=== PATIENT | male | born 1960 | race American Indian/Alaskan Native ===

== ENCOUNTER → 2025-02-21 | Outpatient (CLI) | payer MEDICAID, SELFPAY ==
--- NOTE | 2025-02-21 09:30 | ECHO_ITS ---
Transthoracic Echo Report Ht (in): 72 Wt (lb): 220 Exam Location: Echo Lab Status: Preadmit Electric Tape Slitter: Lia Anderson Indications: Procedure Performed: BP: 139 / 96 HR: MEASUREMENTS (Male / Female) Normal Values 2D ECHO LV Diastolic Diameter PLAX 7.1 cm 4.2 - 5.9 / 3.9 - 5.3 cm LV Systolic Diameter PLAX 5.9 cm IVS Diastolic Thickness 0.9 cm 0.6 - 1.0 / 0.6 - 0.9 cm LVPW Diastolic Thickness 1.6 cm 0.6 - 1.0 / 0.6 - 0.9 cm LV Relative Wall Thickness 0.4 LV Ejection Fraction MOD BP 33.0 % >= 55 % LV Ejection Fraction MOD 4C 34.4 % LV Ejection Fraction 4C AL 34.1 % LV Ejection Fraction MOD 2C 29.0 % LV Ejection Fraction 2C AL 29.0 % LA Volume Index 43.4 cm?/m? 16 - 28 cm?/m? M-MODE Aortic Root Diameter MM 4.0 cm LA Systolic Diameter MM 4.6 cm LA Ao Ratio MM 1.1 AV Cusp Separation MM 1.7 cm DOPPLER AV Peak Velocity 80.3 cm/s AV Peak Gradient 2.6 mmHg AV Mean Gradient 1.0 mmHg AV Velocity Time Integral 16.6 cm LVOT Peak Velocity 56.2 cm/s LVOT Peak Gradient 1.3 mmHg LVOT Velocity Time Integral 11.6 cm MV Area PHT 3.5 cm? MR Peak Velocity 430.5 cm/s MR Peak Gradient 74.1 mmHg Mitral E Point Velocity 82.5 cm/s Mitral A Point Velocity 27.2 cm/s Mitral E to A Ratio 3.0 LV E' Lateral Velocity 8.1 cm/s Mitral E to LV E' Lateral Ratio 10.2 LV E' Septal Velocity 3.3 cm/s Mitral E to LV E' Septal Ratio 25.3 TR Peak Velocity 341.0 cm/s TR Peak Gradient 46.5 mmHg PV Peak Velocity 77.4 cm/s PV Peak Gradient 2.4 mmHg FINDINGS Left Ventricle The left ventricular cavity size is moderately increased. Global left ventricular systolic function is severely decreased. The left ventricular ejection fraction is severely decreased, estimated at 25- 30%. Unable to evaluate diastolic function due valvular disease. Right Ventricle The right ventricle is normal in size and systolic function. The estimated right ventricular systolic pressure, 62 mmHg. RAP 15. Left Atrium The left atrium is normal by two-dimensional, color flow and Doppler imaging with no structural abnormalities, no thrombus formation present. Right Atrium The right atrium is normal by two-dimensional imaging, color flow and Doppler imaging with no structural abnormalities, no thrombus formation present. Atrial Septum The interatrial septum appears normal with no evidence of a shunt. Aorta The aorta is normal by two-dimensional, color flow and Doppler interrogation. Mitral Valve The mitral valve is normal by two-dimensional, color flow and Doppler interrogation. [id number] mitral regurgitation. Aortic Valve The aortic valve is trileaflet and normal by two-dimensional, color flow and Doppler interrogation. Trace aortic valve regurgitation. Tricuspid Valve The tricuspid valve is normal by two-dimensional, color flow and Doppler interrogation. There is mild to moderate tricuspid valve regurgitation. Pulmonic Valve The pulmonic valve is not well visualized. There is no significant pulmonic valve regurgitation. Vessels Less than 50% respiratory change in dimension of the inferior vena cava abnormal. Pericardium The pericardium is normal by two-dimensional imaging. There is no significant pericardial effusion. CONCLUSIONS Indication: Cardiomyopathy Dilated cardiomyopathy severe global hypokinesis LVEF estimated at 25-30%. The RV is normal in size and systolic function. Modearte pumonary hypertension The estimated RVSP, 62 mmHg. RAP 15. Moderate mitral regurgitation Mild to moderate TR. Shirin Castillo (Electronically Signed) Final Date: 21 February 2025 19:22
== END | disposition home or self-care (01) ==
LOC: SDIM 02-24 09:48
PROVIDERS: Referring Provider Family Medicine; Visit Provider Family Medicine
DX: I08.1 Rheumatic disorders of both mitral and tricuspid valves (principal); I27.20 Pulmonary hypertension, unspecified; I42.0 Dilated cardiomyopathy
CPT/HCPCS: 93306